=== PATIENT | female | born 2000 | race Caucasian/White ===

== ENCOUNTER 2022-05-05 08:03 | Emergency (ER) | payer OTHER, SELFPAY ==
[2022-05-05 08:12] VITALS: BP 145/92; PULSE 107; RESP 18; TEMP 36.8; O2SAT 98; BMI 20.9
[2022-05-05 08:23] LABS: MANUAL DIFF FLAG NO
[2022-05-05 08:27] LABS: Basophils Percent Auto 0.1 % (0-2); Eosinophils Percent Auto 0.1 % (0-4); Hematocrit 49.1 % (37.0-47.0); Hemoglobin 17.3 g/dl (12.0-16.0); Imm Gran Abs Auto 0.05 X10*3/uL (0.00-0.03); Imm Gran Pct Auto 0.3 % (0.0-0.4); Lymphocytes Absolute Auto 1.7 X10*3/uL (1.2-4.9); Lymphocytes Percent Auto 11.6 % (20-40); Mean Corpuscular HGB Conc 35.2 g/dl (31.0-35.0); Mean Corpuscular Hemoglobin 32.3 pg (27.0-33.0); Mean Corpuscular Volume 91.6 fL (80.0-98.0); Mean Platelet Volume 10.9 fL (9.4-12.3); Monocytes Absolute Auto 1.2 X10*3/uL (0.1-1.2); Monocytes Percent Auto 8.6 % (2-11); Neutrophils Absolute Auto 11.4 x10*3/uL (2.0-8.3); Neutrophils Percent Auto 79.3 % (45-73); Platelet Count 252 X10*3/uL (160-400); Red Blood Count 5.36 X10*6/uL (4.20-5.50); Red Cell Distribution Width 11.6 % (11.0-16.0); White Blood Count 14.4 X10*3/uL (4.8-10.8)
[2022-05-05 08:40] LABS: Alanine Aminotransferase 26 U/L (0-31); Albumin Level 5.3 g/dL (3.5-5.0); Alkaline Phosphatase 79 U/L (39-117); Aspartate Amino Transferase 26 U/L (5-31); Bilirubin Total 0.5 mg/dL (0.0-1.0); Blood Urea Nitrogen 33 mg/dL (9-16); Calcium 10.1 mg/dL (8.4-10.2); Creatinine Clr Calc Pharmacy 71.3; Estimated Glomerular Filt Rate 59; Glucose Random 125 mg/dL (60-115); Total Protein 8.6 g/dL (6.5-8.0)
[2022-05-05 08:57] LABS: Anion Gap 21 (12-20); Carbon Dioxide 27 mmol/L (22-29); Chloride 95 mmol/L (96-108); Potassium 3.8 mmol/L (3.3-5.1); Sodium 139 mmol/L (135-145)
[2022-05-05] MEDS: Lactated Ringers 1,000 ML 999 ML IV ×2 (09:00→09:58)
[2022-05-05 09:09] LABS: Influenza A PCR NEGATIVE (Negative); Influenza B PCR NEGATIVE (Negative); Resp Syncy Virus RNA Qual PCR NEGATIVE (Negative); SARS COV2 PCR INHOUSE NEGATIVE (Negative)
[2022-05-05] MEDS: ondansetron HCL 4 MG/2 ML VIAL IVPUSH (09:18)
--- NOTE | 2022-05-05 09:24 | ED_ITS ---
HPI - Nausea/Vomiting/Diarrhea General Chief complaint: Nausea/Vomiting/Diarrhea Stated complaint: Dehydrated Time Seen by Provider: 05/05/22 08:27 Source: patient Mode of arrival: ambulatory Limitations: no limitations History of Present Illness HPI Narrative: 21 year old female with no significant past medical history presents to the ED for a 2-day history of nausea, vomiting and diarrhea. Patient states she began vomiting q1h yesterday with multiple episodes of nonbloody diarrhea. Reports minor diffuse abdominal pain associated with vomiting, intermittent chills, and poor P.O intake. Denies fever, hematemesis, melena, hematochezia, urinary sx, or vaginal bleeding. Admits to multiple sick contacts in the home with similar symptoms. Denies recent travel or suspicious food intake. MD elicited complaint: nausea, vomiting and diarrhea Onset (ago): day(s) Related Data Previous Rx's Medication Instructions Recorded ondansetron 4 mg disintegrating 4 mg PO Q8H PRN nausea and 05/05/22 tablet vomiting #10 tabs Allergies Allergy/AdvReac Type Severity Reaction Status Date / Time No Known Allergies Allergy Unverified 11/16/19 17:38 Review of Systems Review of Systems: Constitutional: No Fever, + Chills ENT/Mouth: No Hoarseness, No sore throat, No Rhinorrhea, No Swallowing Difficulty Cardiovascular: No Chest Pain, No SOB Respiratory: No Cough, No Sputum, No Wheezing Gastrointestinal: +Nausea, +Vomiting, + Diarrhea, + Abdominal pain Genitourinary: No Dysuria, No Urinary Frequency, No Hematuria, No Flank Pain Musculoskeletal: No joint pain, No Myalgias, Skin: No Skin Lesions, No rash Yes all other systems are reviewed and are negative Constitutional: Constitutional: Reports as per HPI [facility] Past Medical History Attestation statement: The following information was validated with the patient. Social History Social History Advance Directives: No Advance Directives Information Provided: No Physical Exam Vital Signs: Vital Signs: Last Vital Signs Temp 98.3 F 05/05/22 08:12 Pulse 62 05/05/22 11:00 Resp 18 05/05/22 11:00 BP 141/74 H 05/05/22 11:00 Pulse Ox 98 05/05/22 11:00 O2 Del Method 05/05/22 08:12 BMI result Body Mass Index 20.9 Const: General: cooperative, healthy appearing and no acute distress Orientation/consciousness: patient oriented x3 Limitations: no limitations HEENT: Head: Yes normal to inspection and Yes atraumatic Ears: hearing grossly normal bilaterally General nose exam: Normal external nose present Face and sinus: Yes normal facial exam Eyes: General: appearance normal, both eyes and all related structures EOM: EOMs intact bilaterally Neck: Neck: Yes normal visual inspection and Yes no meningeal signs Resp: Effort & Inspection: normal respiratory effort and no respiratory distress Auscultation: clear to auscultation bilaterally Cardio: Rate: regular rate Heart sounds: S1 normal heart sound present and S2 normal heart sound present GI: Inspection: Yes normal to inspection Palpation (GI): Soft to palpation, nontender, no guarding and not rigid Auscultation: normal bowel sounds : General: Yes no CVA tenderness Back/Spine/Pelvis: Back: no CVA tenderness Skin: Rashes: no rashes Wounds: no wounds Neuro: General: patient oriented x3, tone normal and no meningeal signs Extrem: General: Yes normal to inspection Course Course Course Narrative: -noted leukocytosis of 14.4, likely a stress response from vomiting -hemoconcentrated w/ anion gap 21, and BUN 33 > consistent with dehydration -1126--COVID-19/influenza/RSV negative -1300--UA with protein and ketones. Not infected >> on re-evaluation patient reports mild symptomatic improvement. Has been tolerating p.o. water and crackers without nausea or vomiting. Results discussed with patient including worrisome signs and symptoms and strict return precautions, and when to return to the emergency department. They verbalized understanding and feel safe for discharge at this time. Medications Administered Discontinued Medications Generic Name Dose Route Start Last Admin Trade Name Freq PRN Reason Stop Dose Admin Diphenhydramine HCl 12.5 mg 05/05/22 11:27 05/05/22 12:05 Diphenhydramine Hcl 50 Mg/Ml Vial IVPUSH 05/05/22 11:28 12.5 mg ONCE ONE Administration Lactated Ringer's 1,000 mls @ 999 mls/hr 05/05/22 08:30 05/05/22 09:58 Lr IV 05/05/22 09:30 Infused .Q1H1M KASANDRA Infusion Lactated Ringer's 1,000 mls @ 999 mls/hr 05/05/22 09:30 05/05/22 11:10 Lr IV 05/05/22 10:30 Infused .Q1H1M KASANDRA Infusion Metoclopramide HCl 10 mg 05/05/22 11:27 05/05/22 12:05 Metoclopramide Hcl 10 Mg/2 Ml Vial IVPUSH 05/05/22 11:28 10 mg ONCE ONE Administration Ondansetron HCl 4 mg 05/05/22 09:03 05/05/22 09:18 Ondansetron Hcl 4 Mg/2 Ml Vial IVPUSH 05/05/22 09:04 4 mg ONCE ONE Administration Medical Decision Making Medical Decision Making [facility] Narrative: 21 year old female with no significant past medical history presents to the ED for a 2-day history of nausea, vomiting, diarrhea, abdominal discomfort, and decreased/inability to tolerate p.o. On exam initally tachyacrdic likely from dehydration, NAD, nontoxic, abdomen soft & nontender. Concern for gastroenteritis vs food poisoning vs dehydration vs metabolic abnormalities. Lower suspicion appendicitis/diverticulitis/cholecystitis or lithiasis. Low suspicion for sepsis Plan: Labs, UA, , IVF, antiemetics, p.o. challenge Please refer to course for remaining clinical decision making, interpretation of labs/imaging results, and discussions with consultants and/or family members. Differential Diagnosis Differential Diagnoses: The differential diagnosis associated with the presentation includes as above Admission/Observation Consideration of admission/observation: Escalation of care including admission/observation considered Lab Data [facility] Lab Attestation statement: I reviewed the patient's lab results. 05/05/22 08:19 05/05/22 08:19 Labs: Lab Results 05/05/22 05/05/22 05/05/22 Range/Units 08:19 08:19 08:19 WBC 14.4 H (4.8-10.8) X10*3/uL RBC 5.36 (4.20-5.50) X10*6/uL Hgb 17.3 H (12.0-16.0) g/dl Hct 49.1 H (37.0-47.0) % MCV 91.6 (80.0-98.0) fL MCH 32.3 (27.0-33.0) pg MCHC 35.2 H (31.0-35.0) g/dl RDW 11.6 (11.0-16.0) % Plt Count 252 (160-400) X10*3/uL MPV 10.9 (9.4-12.3) fL Immature Gran % (Auto) 0.3 (0.0-0.4) % Neut % (Auto) 79.3 H (45-73) % Lymph % (Auto) 11.6 L (20-40) % [place] % (Auto) 8.6 (2-11) % Eos % (Auto) 0.1 (0-4) % Baso % (Auto) 0.1 (0-2) % Lymph # (Auto) 1.7 (1.2-4.9) X10*3/uL [place] # (Auto) 1.2 (0.1-1.2) X10*3/uL Eos # (Auto) 0.0 (0.0-0.4) X10*3/uL Baso # (Auto) 0.0 (0.0-0.2) X10*3/uL Abs Immat Gran (auto) 0.05 H (0.00-0.03) X10*3/uL Absolute Neuts (auto) 11.4 H (2.0-8.3) x10*3/uL Absolute Nucleated RBC 0.000 (0.0-0.012) X10*3/uL Nucleated RBC % (auto) 0.0 (0.0-0.2) /100WBC Sodium 139 (135-145) mmol/L Potassium 3.8 (3.3-5.1) mmol/L Chloride 95 L (96-108) mmol/L Carbon Dioxide 27 (22-29) mmol/L Anion Gap 21 H (12-20) BUN 33 H (9-16) mg/dL Creatinine 1.17 (0.5-1.4) mg/dL Estim Creat Clear Calc 71.3 Estimated GFR 59 Random Glucose 125 H (60-115) mg/dL Calcium 10.1 (8.4-10.2) mg/dL Magnesium 2.3 (1.6-2.6) mg/dL Total Bilirubin 0.5 (0.0-1.0) mg/dL AST 26 (5-31) U/L ALT 26 (0-31) U/L Alkaline Phosphatase 79 (39-117) U/L Total Protein 8.6 H (6.5-8.0) g/dL Albumin 5.3 H (3.5-5.0) g/dL Lipase 8 (8-78) U/L Urine Color Urine Appearance Urine pH (5.0-9.0) Ur Specific [place] (1.005-1.025) Urine Protein (Neg-Trace) mg/dL Urine Glucose (UA) (Negative) mg/dL Urine Ketones (Negative) mg/dL Urine Blood (Negative) Urine Nitrite (Negative) Ur Leukocyte Esterase (Negative) Urine RBC (0-2) /HPF Urine WBC (0-5) /HPF Ur Squamous Epith Cells (0-2) /HPF Urine Bacteria (None Seen) Hyaline Casts (0-2) /LPF Urine Test (NEGATIVE) Influenza Type A (PCR) NEGATIVE (Negative) Influenza Type B (PCR) NEGATIVE (Negative) RSV RNA Qual (PCR) NEGATIVE (Negative) SARS-CoV-2 RNA (RT-PCR) NEGATIVE (Negative) 05/05/22 05/05/22 Range/Units 11:15 11:15 WBC (4.8-10.8) X10*3/uL RBC (4.20-5.50) X10*6/uL Hgb (12.0-16.0) g/dl Hct (37.0-47.0) % MCV (80.0-98.0) fL MCH (27.0-33.0) pg MCHC (31.0-35.0) g/dl RDW (11.0-16.0) % Plt Count (160-400) X10*3/uL MPV (9.4-12.3) fL Immature Gran % (Auto) (0.0-0.4) % Neut % (Auto) (45-73) % Lymph % (Auto) (20-40) % [place] % (Auto) (2-11) % Eos % (Auto) (0-4) % Baso % (Auto) (0-2) % Lymph # (Auto) (1.2-4.9) X10*3/uL [place] # (Auto) (0.1-1.2) X10*3/uL Eos # (Auto) (0.0-0.4) X10*3/uL Baso # (Auto) (0.0-0.2) X10*3/uL Abs Immat Gran (auto) (0.00-0.03) X10*3/uL Absolute Neuts (auto) (2.0-8.3) x10*3/uL Absolute Nucleated RBC (0.0-0.012) X10*3/uL Nucleated RBC % (auto) (0.0-0.2) /100WBC Sodium (135-145) mmol/L Potassium (3.3-5.1) mmol/L Chloride (96-108) mmol/L Carbon Dioxide (22-29) mmol/L Anion Gap (12-20) BUN (9-16) mg/dL Creatinine (0.5-1.4) mg/dL Estim Creat Clear Calc Estimated GFR Random Glucose (60-115) mg/dL Calcium (8.4-10.2) mg/dL Magnesium (1.6-2.6) mg/dL Total Bilirubin (0.0-1.0) mg/dL AST (5-31) U/L ALT (0-31) U/L Alkaline Phosphatase (39-117) U/L Total Protein (6.5-8.0) g/dL Albumin (3.5-5.0) g/dL Lipase (8-78) U/L Urine Color Yellow Urine Appearance Cloudy Urine pH 6.0 (5.0-9.0) Ur Specific [place] 1.025 (1.005-1.025) Urine Protein 30 (1+) H (Neg-Trace) mg/dL Urine Glucose (UA) Negative (Negative) mg/dL Urine Ketones 15 (Negative) mg/dL Urine Blood Negative (Negative) Urine Nitrite Negative (Negative) Ur Leukocyte Esterase Negative (Negative) Urine RBC 3-5 H (0-2) /HPF Urine WBC 0-5 (0-5) /HPF Ur Squamous Epith Cells >20 (0-2) /HPF Urine Bacteria Trace (None Seen) Hyaline Casts 3-5 (0-2) /LPF Urine Test NEGATIVE (NEGATIVE) Influenza Type A (PCR) (Negative) Influenza Type B (PCR) (Negative) RSV RNA Qual (PCR) (Negative) SARS-CoV-2 RNA (RT-PCR) (Negative) Radiology Impression Discussion of test interpretation with radiology: I have reviewed the radiologist's reading. Independent Historian Clinical information obtained from an independent historian. History obtained from or confirmed by: Parent External Record Review External record reviewed: Office record and Outpatient record Prescription Management I considered prescription management with: Pain Medication and Antibiotic Discharge Plan Discharge Clinical Impression: Gastroenteritis, Dehydration Patient Disposition: Home, Self-Care Instructions: Dehydration (ED), Gastroenteritis (ED) Additional Instructions: Your blood work shows evidence of dehydration. Zofran is antinausea medication, please take as needed. Practice a bland diet. Avoid spicy foods, sweets, caffeine, chocolate Follow-up with her doctor in the next 2 days If symptoms persist or worsen, your unable to tolerate liquid or food, have persistent nausea or vomiting, or abdominal pain, return to the emergency depart ment Prescriptions: New ondansetron 4 mg tablet,disintegrating 4 mg PO Q8H PRN (Reason: nausea and vomiting) Qty: 10 0RF Referrals: Erika Barnes MD [Primary Care Provider] - 5 days Stand Alone Forms: Work/School Release Interventions: ED Discharge Assessment Last Done: 05/05/22 13:23 Discharge Date/Time: 05/05/22 13:23
[2022-05-05 09:38] LABS: Lipase 8 U/L (8-78); Magnesium 2.3 mg/dL (1.6-2.6)
[2022-05-05 11:00] VITALS: BP 141/74; PULSE 62; RESP 18; O2SAT 98
--- NOTE | 2022-05-05 11:01 | PC.NURSE ---
Patient given crackers for PO challenge
--- NOTE | 2022-05-05 11:19 | PC.NURSE ---
pt oob to br unassisted with steady gait, urine specimen obtained and sent to lab. pt completed second liter of LR, 20G iv still in place. gave pt warm blanket, mother at bedside, awating provider re-eval
[2022-05-05 11:23] LABS: Appearance Urine Cloudy; Color Urine Yellow; Glucose Urine UA Negative (Negative); Leukocyte Esterase Urine Negative (Negative); Nitrite Urine Negative (Negative); Specific Gravity - Urine 1.025 (1.005-1.025); UMIC TRIGGER UACC YES; Urine Blood Negative (Negative); Urine Ketones 15 mg/dL (Negative); Urine Protein 30 (1+) mg/dL (Neg-Trace)
[2022-05-05 11:33] LABS: UPreg QC Valid YES; Urine Pregnancy NEGATIVE (NEGATIVE)
[2022-05-05 12:02] LABS: Bacteria Urine Trace (None Seen); Squamous Epithelial Cell Urine >20 /HPF (0-2); WBC Urine 0-5 /HPF (0-5)
[2022-05-05] MEDS: Metoclopramide HCl 10 MG/2 ML VIAL IVPUSH (12:05)
[2022-05-05] MEDS: diphenhydrAMINE HCL 50 MG/ML VIAL 12.5 MG IVPUSH (12:05)
== END 2022-05-05 13:23 | disposition home or self-care (01) ==
PROVIDERS: Physician Assistant; Emergency Provider Emergency Medicine; PCP Pediatrics Adolescent Medicine
DX: K52.9 Noninfective gastroenteritis and colitis, unspecified (principal); E86.0 Dehydration; Z20.822 Contact with and (suspected) exposure to COVID-19; Z20.828 Contact with and (suspected) exposure to other viral communicable diseases; Z79.899 Other long term (current) drug therapy
CPT/HCPCS: 0241U; 36415; 80053; 81001; 81025; 83690; 83735; 85025; 96361; 96374; 96375; 99283; 99284; J1200; J2405; J2765

== ENCOUNTER 2023-09-21 15:02 | Emergency (ER) | payer OTHER, SELFPAY ==
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
[2023-09-21 15:19] VITALS: BP 112/68; PULSE 96; RESP 18; TEMP 36.7; O2SAT 98; BMI 21.9
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
[2023-09-21 16:50] VITALS: BP 112/68; PULSE 96; RESP 18; TEMP 36.7; O2SAT 98
== END 2023-09-21 16:51 | disposition home or self-care (01) ==
PROVIDERS: Emergency Provider Emergency Medicine
DX: S63.91XA Sprain of unspecified part of right wrist and hand, initial encounter (principal); W22.09XA Striking against other stationary object, initial encounter; Y93.89 Activity, other specified; Y92.009 Unspecified place in unspecified non-institutional (private) residence as the place of occurrence of the external cause; Y99.9 Unspecified external cause status
CPT/HCPCS: 73110; 73130; 99282; 99283